=== PATIENT | male | born 1955 | race Two or more races ===

== ENCOUNTER 2024-10-22 11:16 | Emergency (ER) | payer OTHER, SELFPAY ==
[2024-10-22 11:50] VITALS: BP 164/77; PULSE 63; RESP 18; TEMP 37; O2SAT 97; BMI 25.5
--- NOTE | 2024-10-22 11:56 | XR_ITS ---
Examination: CT cervical spine without contrast 2-D sagittal reconstructions 2-D coronal reconstructions 3-D reconstructions. Exam date and time:October 22, 2024 1232 hours INDICATIONS: Patient fell today with injury to the neck, neck pain CTDI:vol (mGy) 8.52 DLP: (mGycm) 186 Technique: Multiple 2 mm axial sections of the cervical spine have been obtained. The coronal and sagittal reconstructions have been obtained. 3-D reconstructions have been obtained. Low dose protocols were performed. One or more of the following dose reduction techniques were used; automated exposure control, adjustment of the mA and/or KV according to patient size, use of iterative reconstruction technique. Findings: Axial sections demonstrate intact base of the skull. C1 exhibit satisfactory relationship to the odontoid. No acute cervical vertebral body fracture seen. Alignment posterior spinous processes satisfactory. Impression: No acute cervical fracture.
--- NOTE | 2024-10-22 11:56 | XR_ITS ---
Examination: CT brain head without contrast. 2-D sagittal coronal reconstructions Date and time of exam:October 22, 2024 1232 hours INDICATIONS: Patient fell today with injury to the head, head pain CTDI: vol (mGy):48.8 DLP: (mGycm):995 Technique: Multiple CT axial sections of the brain have been obtained, 5 mm slice thickness. Contrast has not been administered. 2-D sagittal, coronal reconstructions have been obtained Low dose protocols were performed. One or more of the following dose reduction techniques were used; automated exposure control, adjustment of the mA and/or KV according to patient size, use of iterative reconstruction technique. Findings: No significant ventricular enlargement. Intra-axial or extra-axial hemorrhage density is not seen. No mass effect or midline shift Basal cisterns are not remarkable. Fourth ventricle is midline. Cranial vault intact. Impression: Negative for acute hemorrhage, mass effect or midline shift
--- NOTE | 2024-10-22 11:56 | XR_ITS ---
Examination: Shoulder,right, 3 views Technique: Shoulder AP internal rotation, AP external rotation, Y view shoulder, 3 views Exam date and time :October 22, 2024 1212 hours INDICATIONS: Patient fell today with injury to the shoulder, shoulder pain. FINDINGS: Moderate osteopenia No shoulder fracture or dislocation Moderate narrowing glenohumeral joint IMPRESSION: No shoulder fracture or dislocation
--- NOTE | 2024-10-22 11:56 | PD.EDRME ---
Rapid Medical Screening Exam [facility] Arrival date/time: 10/22/24 11:16 69-year-old male with no known medical history presents to the emergency room with a chief complaint of headache, neck pain, right shoulder pain after falling off a sprayer 1 hour ago. Patient states he was in approximately 4 foot fall. I have greeted and performed a focused initial assessment of this patient. A comprehensive ED assessment and evaluation of the patient, analysis of all test results, and completion of the medical decision making process will be conducted by additional ED providers. Chief Complaint: Fall Vital signs: Vital Signs Temperature 98.6 F 10/22/24 11:50 Pulse Rate 63 10/22/24 11:50 Respiratory Rate 18 10/22/24 11:50 Blood Pressure 164/77 H 10/22/24 11:50 Pulse Oximetry (%) 97 10/22/24 11:50 Oxygen Delivery Method Room Air 10/22/24 11:50 Vital signs reviewed by provider: Yes
--- NOTE | 2024-10-22 16:25 | EDNOTE_ITS ---
ED Fall Injury RME/HPI General Chief Complaint: Fall Stated Complaint: Fell and hit head and right shoulder Time Seen by Provider: 10/22/24 16:07 Arrival date/time: 10/22/24 11:16 RME / HPI RME / HPI Narrative: 10/22/24 11:16 69-year-old male with no known medical history presents to the emergency room with a chief complaint of headache, neck pain, right shoulder pain after falling off a sprayer 1 hour ago. Patient states it was an approximate 4 foot fall. I have greeted and performed a focused initial assessment of this patient. A comprehensive ED assessment and evaluation of the patient, analysis of all test results, and completion of the medical decision making process will be conducted by additional ED providers. Related Data Previous Rx's ?Medication ?Instructions ?Recorded meloxicam 15 mg tablet 15 mg PO QDAY #10 tabs 10/22 Allergies Allergy/AdvReac Type Severity Reaction Status Date / Time No Known Allergies Allergy Verified 10/22/24 11:19 Review of Systems Review of Systems Systems Reviewed: All systems reviewed, normal except as documented Past Medical History Social History SMOKING STATUS: Never smoker ED Exam Narrative Physical exam: Alert and oriented 69-year-old male, no acute distress. Cervical spine exam reveals paraspinal tenderness bilateral as well as bony point tenderness in right trapezius tenderness. Right shoulder with decreased range of motion secondary to pain. No tenderness to the clavicle. No obvious dislocation or deformity noted. Pupils are PERRL, EOMs intact. Cranial nerves II through XII grossly intact. Equal utility bill complaints investigator strength, equal pedal push/pull. DTRs equal bilaterally. CMS intact to all 4 extremities. Tenderness noted to the right anterior tibia and fibula. No pain with inversion or eversion of the ankle. No tenderness to the foot or knee. Lungs are clear, regular rate and rhythm, abdomen is soft and nontender. No thoracic or lumbar spine tenderness. Course Course Course Narrative: Patient was given ibuprofen [address] reveals: Negative for acute hemorrhage, mass effect or midline shift. Cervical spine CT reveals: No acute cervical fracture. Right shoulder x-ray reveals: No shoulder fracture or dislocation. Right tib-fib x-ray reveals: No fracture or dislocation. Worker's Compensation paperwork completed. Quality Measures none Orders Category Date Time Status Miscellaneous Nursing Order NOW Care 10/22/24 16:[address] cervical spine wo con Stat Exams 10/22/24 11:[address] head/brain wo con Stat Exams 10/22/24 11:56 Completed XR shoulder RT min 2V Stat Exams 10/22/24 11:56 Completed XR tibia fibula RT 2V Stat Exams 10/22/24 16:26 Completed Ibuprofen Tab [Motrin Tab] Med 10/22/24 16:25 Discontinued 600 mg PO X1 ONE Vital Signs Vital signs: Vital Signs Temperature 98.6 F 10/22/24 11:50 Pulse Rate 63 10/22/24 11:50 Respiratory Rate 18 10/22/24 11:50 Blood Pressure 164/77 H 10/22/24 11:50 Pulse Oximetry (%) 97 10/22/24 11:50 Oxygen Delivery Method Room Air 10/22/24 11:50 Fall MDM Narrative MDM Narrative:: 69-year-old male with no known medical history presents to the emergency room with a chief complaint of headache, neck pain, right shoulder pain after falling off a sprayer 1 hour ago. Patient states it was an approximate 4 foot fall. Alert and oriented 69-year-old male, no acute distress. Cervical spine exam reveals paraspinal tenderness bilateral as well as bony point tenderness in right trapezius tenderness. Right shoulder with decreased range of motion secondary to pain. No tenderness to the clavicle. No obvious dislocation or deformity noted. Pupils are PERRL, EOMs intact. Cranial nerves II through XII grossly intact. Equal utility bill complaints investigator strength, equal pedal push/pull. DTRs equal bilaterally. CMS intact to all 4 extremities. Tenderness noted to the right anterior tibia and fibula. No pain with inversion or eversion of the ankle. No tenderness to the foot or knee. Lungs are clear, regular rate and rhythm, abdomen is soft and nontender. No thoracic or lumbar spine tenderness. Patient was given ibuprofen [address] reveals: Negative for acute hemorrhage, mass effect or midline shift. Cervical spine CT reveals: No acute cervical fracture. Right shoulder x-ray reveals: No shoulder fracture or dislocation. Right tib-fib x-ray reveals: No fracture or dislocation. Worker's Compensation paperwork completed. Patient was discharged home in stable and improved condition. Patient data External records reviewed:: None Clinical information provided by:: patient Social determinants that could affect healthcare access:: none Patient has the following chronic illnesses:: N/A How is presenting disease/condition affected by chronic disease/condition?: no chronic disease Evaluation data The following diagnostics were reviewed and interpreted by me:: radiology e xam(s) Lab and/or radiology exams considered but not ordered:: N/A Interpretation Summary: As noted above Medications / Prescriptions Medications or Prescriptions considered but not ordered:: N/A Medication administrations:: Medication Administration History Discontinued Medications Ibuprofen (Ibuprofen Tab 600 Mg Tablet) 600 mg PO X1 ONE Stop: 10/22/24 16:26 Last Admin: 10/22/24 17:56 Dose: 600 mg Documented By: As noted above Consultations Consultation(s) initiated? (list below): No Diagnosis Fall Differential Diagnosis: dislocation of shoulder region, compression fracture, concussion with loss of consciousness and concussion without loss of consciousness Most likely diagnosis given after review of the tests above:: Neck strain, head contusion, right shoulder contusion. Admission Indicated Admission indicated?: not indicated Explain why admission is indicated or not indicated:: Patient is stable for discharge Admission Request Was there a request for admission?: No Disposition Plan Disposition Plan: Discharge Discharge Attestation Discharge Attestation: The patient and all family members were given an opportunity to ask questions and understood the discharge instructions. Discharge instructions specifically effects, indications for sooner follow up or return to the emergency department, and the expected course of current diagnosis. Patient condition: Stable Discharge Plan Plan Patient Disposition: HOME (Self Care) Discharge Disposition comment: Stable and improved Prescriptions/Referrals Prescriptions/Med Rec: New meloxicam 15 mg tablet 15 mg PO QDAY Qty: 10 0RF Referrals: John Diaz MD [Primary Care Provider] - In 1 week Problem List Clinical Impression: Concussion without loss of consciousness, Acute strain of neck muscle, Muscle strain of right shoulder, Contusion of right lower extremity Patient/Caregiver Discharge Instructions Education Materials: ED Contusion, Lower Extremity, ED Head Injury (Adult), ED Neck Sprain or Strain, ED Muscle Strain, Extremity Additional Instructions: Contact your employer to find out your Worker's Compensation clinic. Follow-up with your Worker's Compensation clinic. Take the medications as needed for pain. Return to the ED for any new or worsening symptoms. Print Language: German Stand Alone Forms: Vi Award Info., Patient Portal Info Letter HI/KARINA Supervising Physician HI/KARINA Supervising Physician: Dr. Reis
--- NOTE | 2024-10-22 16:26 | XR_ITS ---
Examination: Tibia-Fibula, right , 2 views Technique: Tibia-fibula AP lateral 2 views Date and time of exam: October 22, 2024 1634 hours INDICATIONS: Patient fell today with injury to the lower leg, lower leg pain. FINDINGS: No fracture or dislocation. No foreign body IMPRESSION: No fracture or dislocation.
[2024-10-22] MEDS: IBUPROFEN TAB 600 MG TABLET PO (17:56)
[2024-10-22 17:59] VITALS: BP 180/86; BP 180/90; PULSE 54; RESP 17; TEMP 36.7; O2SAT 99
== END 2024-10-22 20:45 | disposition home or self-care (01) ==
PROVIDERS: Emergency Provider Family Medicine; PCP Family Medicine
DX: S06.0X0A Concussion without loss of consciousness, initial encounter (principal); S46.911A Strain of unspecified muscle, fascia and tendon at shoulder and upper arm level, right arm, initial encounter; S16.1XXA Strain of muscle, fascia and tendon at neck level, initial encounter; S80.11XA Contusion of right lower leg, initial encounter; W30.89XA Contact with other specified agricultural machinery, initial encounter; Y92.73 Farm field as the place of occurrence of the external cause; Y99.0 Civilian activity done for income or pay
CPT/HCPCS: 70450; 72125; 73030; 73590; 99284; A9270